=== PATIENT | male | born 1945 | race Caucasian/White ===

== ENCOUNTER 2016-11-26 10:21 | Emergency (ER) | payer MEDICARE, OTHER ==
[~2016-11-26] VITALS: Ht 175.3 cm; Wt 97.0 kg
[~2016-11-26 10:21] MED LIST: ATOR40TA21; CEPH-443 PO; CLIN-73 PO; GABA100C14; GABA300C16; GLIM2TAB; GLYB1TAB3; HC20CR25; LISI2.5T59; LORA-441; MELO-109; METF500T4; OMEP20CA16; PREG50CA; SITA100T8; TRAM50TA2; [UNRECOGNIZED DRUG - CODE]
[2016-11-26 10:23] VITALS: Ht 175.3 cm; Wt 97.0 kg
[2016-11-26] MEDS ORDERED: KETOROLAC 30 MG INJ IM STA (10:40)
--- NOTE | 2016-11-26 10:44 | ERD ---
ER Documentation Chief Complaint Date/Time DATE: 11/26/16 TIME: 10:41 Chief Complaint BACK PAIN X 2 DAYS, NO INJURY HPI This 70-year-old male who presents the emergency department today complaining of back pain for the past 2 days. States he has pain when he goes from sitting to standing and the pain improves. States he is taking gabapentin for pain. States he had back pain 10 years ago but went to massage for times and the pain improved. Denies any fevers or chills, trauma, dysuria, loss of bowel or bladder control. ROS All systems reviewed and are negative except as per history of present illness. Medications Home Meds Active Scripts Naproxen* (Naprosyn*) 500 Mg Tablet, 500 MG PO BID Y for PAIN AND/OR INFLAMMATION, #30 TAB Prov:DENYS GOULD PA-C 11/26/16 Tramadol HCl (Tramadol HCl) 50 Mg Tablet, 50 MG PO Q4 Y for PAIN, #20 TAB Prov:DENYS GOULD PA-C 11/26/16 Cephalexin* (Keflex*) 500 Mg Capsule, 500 MG PO QID for 5 Days, CAP Prov:NADEGE FELIPE NP 04/29/16 Clindamycin Hcl* (Clindamycin Hcl*) 300 Mg Capsule, 450 MG PO TID for 5 Days, CAP Prov:MARCOS MONTE PA-C 03/27/16 Reported Medications Gabapentin* (Gabapentin*) 100 Mg Capsule 10/18/12 Glimepiride* (Glimepiride*) 2 Mg Tablet 10/18/12 Lorazepam* (Ativan*) 0.5 Mg Tablet 10/18/12 Pregabalin* (Lyrica*) 50 Mg Capsule 10/18/12 Lisinopril* (Lisinopril*) 2.5 Mg Tablet 10/18/12 Metformin Hcl* (Metformin Hcl*) 500 Mg Tablet 10/18/12 Hydrocortisone* Topical (Hydrocortisone* Topical) 1 Applic Cr 10/18/12 Gabapentin* (Gabapentin*) 300 Mg Capsule 10/18/12 Fluocinolone Acetonide* (Synalar* Cream) 1 Applic Cr 10/18/12 Omeprazole* (Omeprazole*) 20 Mg Capsule. 10/18/12 Glyburide, Micro-Metformin Hcl (Glyburide-Metformin) 1 Tab Tablet 10/18/12 Atorvastatin (Lipitor) 40 Mg Tablet, DAILY 04/03/12 Tramadol HCl (Tramadol HCl) 50 Mg Tablet, DAILY 04/03/12 Meloxicam* (Meloxicam*) 7.5 Mg Tablet, DAILY 04/03/12 Sitagliptin* (Januvia*) 100 Mg Tablet, DAILY 04/03/12 Allergies Allergies: Coded Allergies: No Known Allergy (Unverified , 04/03/12) PMhx/Soc Hx Cardiac Disorders: Yes (HTN, HI CHOL) Hx Miscellaneous Medical Probl: Yes (dm) Hx Alcohol Use: No Hx Substance Use: No Hx Tobacco Use: No Physical Exam Vitals Vital Signs Date Time Temp Pulse Resp B/P Pulse Ox O2 Delivery O2 Flow Rate FiO2 11/26/16 10:23 98.3 105 18 117/74 95 Physical Exam Const: No acute distress Head: Atraumatic Eyes: Normal Conjunctiva ENT: Normal External Ears, Nose and Mouth. Neck: Full range of motion..~ No meningismus. Resp: Clear to auscultation bilaterally Cardio: Regular rate and rhythm, no murmurs Skin: No petechiae or rashes Back: Lumbar spine midline tenderness and bilateral paraspinal tenderness. Decreased range of motion secondary to pain. Pulses 2+. Distal neurovascularly intact Ext: No cyanosis, or edema Neur: Awake and alert Psych: Normal Mood and Affect Results 24 hrs Laboratory Tests Test 11/26/16 10:56 Bedside Urine pH (LAB) 5.5 Bedside Urine Protein (LAB) Negative Bedside Urine Glucose (UA) 0.50% Bedside Urine Ketones (LAB) Negative Bedside Urine Blood Trace-intact Bedside Urine Nitrite (LAB) Negative Bedside Urine Leukocyte Esterase (L Negative Current Medications Medications (Trade) Dose Ordered Sig/Tito Route PRN Reason Start Time Stop Time Status Last Admin Dose Admin Ketorolac Tromethamine (Toradol) 30 mg ONCE STAT IM 11/26/16 10:40 11/26/16 10:41 DC 11/26/16 10:51 DIAGNOSTIC IMAGING REPORT Patient: AMERICO PRO : 1945 Age: 70 Sex: M MR #: [id number] DOS: 11/26/16 0000 Ordering MD: DENYS GOULD PA-C Location: [facility] Room/Bed: PROCEDURE: XR lumbar spine CLINICAL INDICATION: Low back pain 2 days TECHNIQUE: 3 views of the lumbar spine were obtained COMPARISON: None available FINDINGS: No fracture is identified. Vertebral bodies are grossly maintained in height. There is preservation of the lordosis of the lumbar spine. Alignment appears intact. There are multilevel anterior osteophytes which are prominent suggesting diffuse idiopathic skeletal hyperostosis. There is disk space narrowing, moderate - severe at L2-3 through L5-S1 , and multilevel vacuum disk changes. Facet arthropathy is seen at L4-5 and L5-S1. IMPRESSION: Multilevel advanced lumbar spondylosis/degenerative enthesopathy, with findings suggesting diffuse idiopathic skeletal hyperostosis. RPTAT: VV .Murtaza Loja MD, MD Date Time Electronically viewed and signed by .Murtaza Loja MD, on 11/26/2016 11:38 .O/ CC: DENYS GOULD PA-C Procedures/MDM This is a 70-year-old male who presents to the emergency department today complaining of back pain for the past 2 days. Given patient's age and midline tenderness I did feel it was appropriate to obtain imaging as well as a UA UA is negative for infection. Patient has glucose in his urine. He is a diabetic. Negative ketones. Low suspicion for pyelonephritis, nephrolithiasis Per the radiology report images of the lumbar spine show multilevel advanced lumbar spondylosis and degenerative changes with findings suggestive of diffuse idiopathic skeletal hyperostosis. There is facet arthropathy at the seen at L4 and 5 and L5 and S1. There is disc space narrowing, moderate to severe at L2 and 3 and through L5 and S1 This is likely the source of the patient's pain. Likely acute on chronic pain. Low suspicion for acute fracture or dislocation. Patient is afebrile and otherwise well-appearing. They have no loss of bowel or bladder control. Low suspicion for cauda equina or abscess patient is here with his and did ask me to speak to the son on the phone who speaks Chinese. I have explained all results to the son. I explained that he would likely need follow- up with rheumatology specialist. Patient was given Toradol here in the emergency department and pain improved. Patient will be given a prescription for tramadol, Naprosyn for home. At this time the patient is stable for discharge and outpatient management. Patient should follow up with their PCP in the next 1-2 days for possible orthopedic referral. They may return to the emergency department sooner for any persistent or worsening of symptoms. Patient and son understood and agreed with the plan. Departure Diagnosis: Primary Impression: Back pain Back pain location: low back pain Chronicity: acute Back pain laterality: bilateral Sciatica presence: unspecified whether sciatica present Qualified Code: M54.5 - Acute bilateral low back pain, with sciatica presence unspecified Condition: DENYS Salazar PA-C Nov 26, 2016 10:44
[2016-11-26 10:50] LABS: URINE BLOOD (Dip) POC Trace-intact (NEGATIVE)
--- NOTE | 2016-11-26 11:39 | RADRPT ---
PROCEDURE: XR lumbar spine CLINICAL INDICATION: Low back pain 2 days TECHNIQUE: 3 views of the lumbar spine were obtained COMPARISON: None available FINDINGS: No fracture is identified. Vertebral bodies are grossly maintained in height. There is preservatio n of the lordosis of the lumbar spine. Alignment appears intact. There are multilevel anterior ost eophytes which are prominent suggesting diffuse idiopathic skeletal hyperostosis. There is disk spa ce narrowing, moderate - severe at L2-3 through L5-S1 , and multilevel vacuum disk changes. Facet a rthropathy is seen at L4-5 and L5-S1. IMPRESSION: Multilevel advanced lumbar spondylosis/degenerative enthesopathy, with findings suggesting diffuse i diopathic skeletal hyperostosis. RPTAT: VV .Murtaza Loja MD, Date Time Electronically viewed and signed by .Murtaza Loja MD, on 11/26/2016 11:38 .O/
[2016-11-26] MEDS ORDERED: NAPR-260 PO (11:51)
[2016-11-26] MEDS ORDERED: TRAM50TA2 PO (11:51)
[2016-12-01 16:12] LABS: URINE BLOOD (Dip) POC Trace-intact (NEGATIVE)
== END 2016-11-26 12:13 | disposition home or self-care (01) ==
LOC: FTE 10:21
DX: M54.5 Low back pain (principal); I10 Essential (primary) hypertension; E11.9 Type 2 diabetes mellitus without complications; Z79.84 Long term (current) use of oral hypoglycemic drugs
CPT/HCPCS: 72100; 81003; 96372; 99284; J1885

== ENCOUNTER 2017-01-15 10:42 | Observation (INO) | payer MEDICARE, OTHER ==
[~2017-01-15] VITALS: Ht 170.2 cm; Wt 91.7 kg
[~2017-01-15 10:42] MED LIST changes: +NAPR-260 PO; +TRAM50TA2 PO
[2017-01-15] MEDS ORDERED: NITROGLYCERIN 2% 1 GM OINT PKT TD STA (12:26)
[2017-01-15] MEDS ORDERED: ASPIRIN 81 MG TAB PO STA (12:26)
[2017-01-15] MEDS ORDERED: NITROGLYCERIN (SL) 0.4 MG TAB SL PRN (12:30)
[2017-01-15 12:47] LABS: BASOPHIL # 0.1 10^3/ul (0.0-0.1); BASOPHILS % 0.4 % (0.0-2.0); EOSINOPHILS # 0.2 10^3/ul (0.0-0.5); EOSINOPHILS % 1.5 % (0.0-7.0); HEMATOCRIT 45.8 % (42.0-52.0); HEMOGLOBIN 15.4 g/dl (14.0-18.0); LYMPHOCYTES # 2.6 10^3/ul (0.8-2.9); LYMPHOCYTES % 19.8 % (15.0-51.0); MEAN CORPUSCULAR HEMOGLOBIN 29.2 pg (29.0-33.0); MEAN CORPUSCULAR HGB CONC 33.6 g/dl (32.0-37.0); MEAN CORPUSCULAR VOLUME 86.7 fl (82.0-101.0); MEAN PLATELET VOLUME 10.4 fl (7.4-10.4); MONOCYTE # 1.2 10^3/ul (0.3-0.9); MONOCYTES % 9.2 % (0.0-11.0); NEUTROPHILS % 68.5 % (39.0-77.0); PLATELET COUNT 269 10^3/UL (140-415); RED BLOOD COUNT 5.28 10^6/ul (4.70-6.10); RED CELL DISTRIBUTION WIDTH 13.2 % (11.5-14.5); WHITE BLOOD COUNT 12.9 10^3/ul (4.8-10.8)
[2017-01-15 13:12] LABS: ANION GAP 15 (8-16); BLOOD UREA NITROGEN 12 mg/dl (7-20); CALCIUM 9.7 mg/dl (8.4-10.2); CARBON DIOXIDE 28 mmol/L (21-31); CHLORIDE 103 mmol/L (97-110); CREATININE 0.82 mg/dl (0.61-1.24); GLUCOSE 129 mg/dl (70-220); POTASSIUM 4.5 mmol/L (3.5-5.1); SODIUM 141 mmol/L (135-144)
--- NOTE | 2017-01-15 13:24 | ERA ---
ER Documentation Chief Complaint Date/Time DATE: 01/15/17 TIME: 13:19 Chief Complaint cp x 1 week; avery HPI Patient is a 71-year-old male with diabetes who presents with chest pain. He has had the chest pain for the past 1 week. The pain comes and goes. It is midsternal. It has been worsening over the past 2 days. The pain radiates to his right side. He does feel pain up his neck and into his head. He was also sweaty and had shortness of breath. Upon review of old medical records this is the patient's sixth visit to the ER since 2011. ROS All systems reviewed and are negative except as per history of present illness. Medications Home Meds Active Scripts Naproxen* (Naprosyn*) 500 Mg Tablet, 500 MG PO BID Y for PAIN AND/OR INFLAMMATION, #30 TAB Prov:DENYS GOULDC 11/26/16 Tramadol HCl (Tramadol HCl) 50 Mg Tablet, 50 MG PO Q4 Y for PAIN, #20 TAB Prov:DENYS GOULDC 11/26/16 Cephalexin* (Keflex*) 500 Mg Capsule, 500 MG PO QID for 5 Days, CAP Prov:NADEGE FELIPE NP 04/29/16 Clindamycin Hcl* (Clindamycin Hcl*) 300 Mg Capsule, 450 MG PO TID for 5 Days, CAP Prov:MARCOS MONTE PA-C 03/27/16 Reported Medications Gabapentin* (Gabapentin*) 100 Mg Capsule 10/18/12 Glimepiride* (Glimepiride*) 2 Mg Tablet 10/18/12 Lorazepam* (Ativan*) 0.5 Mg Tablet 10/18/12 Pregabalin* (Lyrica*) 50 Mg Capsule 10/18/12 Lisinopril* (Lisinopril*) 2.5 Mg Tablet 10/18/12 Metformin Hcl* (Metformin Hcl*) 500 Mg Tablet 10/18/12 Hydrocortisone* Topical (Hydrocortisone* Topical) 1 Applic Cr 10/18/12 Gabapentin* (Gabapentin*) 300 Mg Capsule 10/18/12 Fluocinolone Acetonide* (Synalar* Cream) 1 Applic Cr 10/18/12 Omeprazole* (Omeprazole*) 20 Mg Capsule. 10/18/12 Glyburide, Micro-Metformin Hcl (Glyburide-Metformin) 1 Tab Tablet 10/18/12 Atorvastatin (Lipitor) 40 Mg Tablet, DAILY 04/03/12 Tramadol HCl (Tramadol HCl) 50 Mg Tablet, DAILY 04/03/12 Meloxicam* (Meloxicam*) 7.5 Mg Tablet, DAILY 04/03/12 Sitagliptin* (Januvia*) 100 Mg Tablet, DAILY 04/03/12 Allergies Allergies: Coded Allergies: No Known Allergy (Unverified , 04/03/12) PMhx/Soc History of Surgery: No Anesthesia Reaction: No Hx Neurological Disorder: No Hx Respiratory Disorders: No Hx Cardiac Disorders: No (HYPERTeNSION; HYPERCHOLESTEROLEMIA) Hx Psychiatric Problems: No Hx Miscellaneous Medical Probl: Yes (DIABETES MELLITUS) Hx Alcohol Use: No Hx Substance Use: No Hx Tobacco Use: No Smoking Status: Never smoker FmHx Family History: No coronary disease Physical Exam Vitals Vital Signs Date Time Temp Pulse Resp B/P Pulse Ox O2 Delivery O2 Flow Rate FiO2 01/15/17 12:44 98.1 106 18 131/85 98 Room Air 01/15/17 12:42 Nasal Cannula 01/15/17 11:17 98.4 109 18 116/74 96 Physical Exam Const: No acute distress Head: Atraumatic Eyes: Normal Conjunctiva ENT: Normal External Ears, Nose and Mouth. Neck: Full range of motion..~ No meningismus. Resp: Clear to auscultation bilaterally Cardio: Regular rate and rhythm, no murmurs Abd: Soft, non tender, non distended. Normal bowel sounds Skin: No petechiae or rashes Back: No midline or flank tenderness Ext: No cyanosis, or edema Neur: Awake and alert Psych: Normal Mood and Affect Result Diagram: 01/15/17 1230 01/15/17 1230 Results 24 hrs Laboratory Tests Test 01/15/17 12:30 White Blood Count 12.910^3/ul Red Blood Count 5.2810^6/ul Hemoglobin 15.4g/dl Hematocrit 45.8% Mean Corpuscular Volume 86.7fl Mean Corpuscular Hemoglobin 29.2pg Mean Corpuscular Hemoglobin Concent 33.6g/dl Red Cell Distribution Width 13.2% Platelet Count 58081^3/UL Mean Platelet Volume 10.4fl Neutrophils % 68.5% Lymphocytes % 19.8% Monocytes % 9.2% Eosinophils % 1.5% Basophils % 0.4% Nucleated Red Blood Cells % 0.0/100WBC Neutrophils # (Manual) 8.910^3/ul Lymphocytes # 2.610^3/ul Monocytes # 1.210^3/ul Eosinophils # 0.210^3/ul Basophils # 0.110^3/ul Nucleated Red Blood Cells # 0.010^3/ul Sodium Level 141mmol/L Potassium Level 4.5mmol/L Chloride Level 103mmol/L Carbon Dioxide Level 28mmol/L Anion Gap 15 Blood Urea Nitrogen 12mg/dl Creatinine 0.82mg/dl Glucose Level 129mg/dl Calcium Level 9.7mg/dl Troponin I Pending Current Medications Medications (Trade) Dose Ordered Sig/Tito Route PRN Reason Start Time Stop Time Status Last Admin Dose Admin Aspirin (Aspirin) 162 mg ONCE STAT PO 01/15/17 12:26 01/15/17 12:27 DC 01/15/17 12:50 Nitroglycerin (Nitroglycerin 2% Oint) 1 inch ONCE STAT TD 01/15/17 12:26 01/15/17 12:27 DC 01/15/17 12:51 Nitroglycerin (Nitroglycerin (Sl Tab) 0.4 Mg) 1 tab Q5M UP TO 3 DOSES PRN SL CHEST PAIN 01/15/17 12:30 Ondansetron HCl (Zofran Inj) 4 mg ER BRIDGE PRN IV NAUSEA AND/OR VOMITING 01/15/17 13:30 01/16/17 13:29 Acetaminophen (Tylenol Tab) 650 mg ER BRIDGE PRN PO MILD PAIN/FEVER 01/15/17 13:30 01/16/17 13:29 Procedures/MDM EKG read by me: Rate/Rhythm: Sinus tachycardia rate of 109 Intervals: Normal Impression: Sinus tachycardia without ischemia EKG #2 is pending at this time. Chest x-ray shows no pneumonia or pneumothorax per radiology. Patient is a 71-year-old male presents with chest pain. The patient was given aspirin nitroglycerin empirically. Given his age and diabetes I am concerned about acute coronary syndrome. I doubt pneumonia, pneumothorax, pulmonary embolism, or aortic dissection. Troponin is pending at this time. I spoke with Dr. Hayes from the panel team for admission to a telemetry bed as the patient has Medicare insurance and his primary doctor does not have admitting privileges. Departure Diagnosis: Primary Impression: Chest pain Qualified Code: R07.9 - Chest pain, unspecified type Condition: JESSICA Mcdaniel MD Jan 15, 2017 13:24
[2017-01-15 13:25] LABS: TROPONIN-I < 0.012 ng/ml (0.00-0.12)
--- NOTE | 2017-01-15 13:28 | RADRPT ---
PROCEDURE: XR Chest. CLINICAL INDICATION: chest pain TECHNIQUE: Single frontal view of the chest was obtained COMPARISON: None FINDINGS: The heart and mediastinum are within normal limits. The lungs are clear. There is no pleural effusion or pneumothorax. RPTAT: AA IMPRESSION: No acute disease. .Everett Tran MD, Date Time Electronically viewed and signed by .Everett Tran MD, on 01/15/2017 13:28 .S/
[2017-01-15] MEDS ORDERED: ONDANSETRON 4 MG INJ IV PRN ×2 (13:30→16:00)
[2017-01-15] MEDS ORDERED: ACETAMINOPHEN 325 MG TAB PO PRN ×2 (13:30→16:00)
[2017-01-15] MEDS ORDERED: FLUO120C4 TOP (13:54)
[2017-01-15] MEDS ORDERED: GLIM2TAB PO ×2 (13:57→14:01)
[2017-01-15] MEDS ORDERED: ASPI-664 PO (13:58)
[2017-01-15] MEDS ORDERED: METO25TA7 PO (13:59)
[2017-01-15] MEDS ORDERED: GABA300C16 PO (14:00)
[2017-01-15] MEDS ORDERED: IBUP-1542 PO (14:00)
[2017-01-15] MEDS ORDERED: OMEP20CA16 PO (14:05)
[2017-01-15] MEDS ORDERED: MTF1000T PO (14:06)
[2017-01-15] MEDS ORDERED: SITA100T8 PO (14:07)
[2017-01-15] MEDS ORDERED: LISI2.5T59 PO (14:08)
[2017-01-15] MEDS ORDERED: HYPOGLYCEMIA PROTOCOL when Glucose is <70 mg/dL or symptomatic <90 mg/dL. XX ONE (16:00)
[2017-01-15] MEDS ORDERED: morphine 2 MG INJ IV PRN (16:00)
[2017-01-15] MEDS ORDERED: ACETAMINOPHEN 650 MG SUPP PR PRN (16:00)
[2017-01-15] MEDS ORDERED: DEXTROSE 50% 50 ML SYRINGE IV PRN ×2 (16:00)
[2017-01-15] MEDS ORDERED: HYDROCODONE/APAP (5/325) TAB PO PRN ×2 (16:00)
[2017-01-15] MEDS ORDERED: GLUCAGON 1 MG INJ IM PRN (16:00)
[2017-01-15] MEDS ORDERED: Discontinue current oral sulfonylureas (glyburide, glipizide, and/or glimepiride) prior to XX ONE (16:00)
[2017-01-15] MEDS ORDERED: MAGNESIUM HYDROXIDE 30ML CUP PO PRN (16:00)
[2017-01-15] MEDS ORDERED: IBUPROFEN 600 MG TAB PO PRN (16:00)
[2017-01-15] MEDS ORDERED: DOCUSATE SODIUM 100 MG CAP PO PRN (16:00)
[2017-01-15] MEDS ORDERED: GLUCOSE GEL 15 GRAM TUBE BUCCAL PRN (16:00)
[2017-01-15] MEDS ORDERED: BISACODYL 10 MG SUPP PR PRN (16:00)
[2017-01-15] MEDS ORDERED: NACL 0.9% 3 ML SYG IV SCH (16:00)
[2017-01-15] MEDS ORDERED: GLUCOSE GEL 15 GRAM TUBE PO PRN ×2 (16:00)
--- NOTE | 2017-01-15 17:26 | HP ---
Date/Time of Note Date/Time of Note DATE: 01/15/17 TIME: 17:24 Assessment/Plan VTE Prophylaxis VTE Prophylaxis Intervention: SCD's Lines/Catheters IV [facility] [place] Assessment/Plan Chief Complaint/Hosp Course Assessment and plan 1. Chest pain. Rule out ACS. Follow-up until troponins. News Correspondent to follow. Will also check up on echocardiogram. 2. Leukocytosis. Etiology unknown. Patient remains afebrile. No reports of fever at home as well. Chest x-ray was negative for any acute findings. Likely reactive. Will monitor for now. 3. Diabetes. A1c at 7.3. Will place on insulin regimen for now. Will adjust as needed. 4. Hypertension. Will continue antihypertensives and adjust needed Admission process time >40 minutes Discussed plan of care with Dr. Hayes Problems: HPI/ROS Admit Date/Time Admit Date/Time This is a 71-year-old male with history of diabetes and hypertension who came to [facility] due to reports of chest pain. Patient does report his chest pain roughly has been occurring intermittently for 1 week duration with pain starting on the right side and going on the left. He does report that pain happens randomly not associated with exertion and no reported shortness of breath. He is unable to descriptively describe his chest pain but only reports that it hurts. He reports pain is more on the right side now. He was brought to [facility] for further evaluation. Upon examination he did have a white count of 12.9 additionally initial troponin I was less than 0.012. A1c was seen at 7.3 and basic metabolic panel was otherwise unremarkable. He remained afebrile. Chest x-ray was also noted to be negative. He otherwise appears comfortable at this time. We will evaluate him for the aformentiond issues. ROS 12 point review of systems obtained and entirely negative except that mentioned in history of present illness PMH/Family/Social Past Medical History Medical/surgical history 1. Hypertension 2. Diabetes Social History Alcohol Use: none Smoking Status: Former smoker (Stop smoking 10 years ago) Drug Use: none Exam/Review of Systems Vital Signs Vitals Vital Signs Date Time Temp Pulse Resp B/P Pulse Ox O2 Delivery O2 Flow Rate FiO2 01/15/17 16:36 85 18 112/73 99 Room Air 01/15/17 12:44 98.1 Exam Constitutional: alert, oriented Psych: nl mood/affect Head: normocephalic Neck: supple, No jvd Respiratory: clear to auscultation, normal air movement Cardiovascular: regular rate and rhythm Gastrointestinal: non-tender, soft Musculoskeletal: nl extremities to inspection, nl gait and stance Extremities: normal pulses 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, nl mental status, nl speech Labs Result Diagram: 01/15/17 1230 01/15/17 1230 Medications Medications Current Medications Aspirin (Halfprin) 81 mg DAILY PO ; Start 01/16/17 at 09:00 Fluocinonide (Lidex 0.05% Cr) 1 applic BID TOP ; Start 01/15/17 at 21:00 Gabapentin (Neurontin) 300 mg QHS PO ; Start 01/15/17 at 21:00 Ibuprofen (Motrin) 600 mg Q12 PRN PO PAIN AND/OR INFLAMMATION; Start 01/15/17 at 16:00 Lisinopril (Zestril) 2.5 mg DAILY PO ; Start 01/16/17 at 09:00 Metoprolol Succinate (Toprol Xl) 25 mg DAILY PO ; Start 01/16/17 at 09:00 Pantoprazole (Protonix Tab) 40 mg DAILY@06 PO ; Start 01/16/17 at 06:00 Ondansetron HCl (Zofran Inj) 4 mg Q6H PRN IV NAUSEA AND/OR VOMITING; Start 04/21 at 16:00 Acetaminophen (Tylenol Tab) 650 mg Q6H PRN PO PAIN LEVEL 1-3 OR FEVER; Start at 16:00 Acetaminophen (Tylenol Supp) 650 mg Q6H PRN [place] PAIN LEVEL 1-3 OR FEVER; Start 01/15/17 at 16:00 Acetaminophen/ Hydrocodone Bitart ([place] (5/325)) 1 tab Q6H PRN PO MODERATE PAIN LEVEL 4-6; Start 01/15/17 at 16:00 Acetaminophen/ Hydrocodone Bitart ([place] (5/325)) 2 tab Q6H PRN PO SEVERE PAIN LEVEL 7-10; Start 01/15/17 at 16:00 Morphine Sulfate (morphine) 2 mg Q4H PRN IV SEVERE PAIN LEVEL 7-10; Start 01/15 at 16:00 Docusate Sodium (Colace) 100 mg Q12H PRN PO CONSTIPATION; Start 01/15/17 at 16: 00 Magnesium Hydroxide (Milk Of Mag) 30 ml DAILY PRN PO CONSTIPATION; Start at 16:00 Bisacodyl (Dulcolax Supp) 10 mg DAILY PRN [place] CONSTIPATION; Start 01/15/17 at 16 :00 Diagnostic Test (Pha) (Accu-Chek) 1 ea 02 XX ; Start 01/16/17 at 02:00 Insulin Glargine (Lantus) 14 unit DAILY@08 SC ; Start 01/16/17 at 08:00 Miscellaneous Information 1 ea NOTE XX ; Start 01/15/17 at 16:00 Glucose (Glutose) 15 gm Q15M PRN PO DECREASED GLUCOSE; Start 01/15/17 at 16:00 Glucose (Glutose) 22.5 gm Q15M PRN PO DECREASED GLUCOSE; Start 01/15/17 at 16: 00 Dextrose (D50w Syringe) 25 ml Q15M PRN IV DECREASED GLUCOSE; Start 01/15/17 at 16:00 Dextrose (D50w Syringe) 50 ml Q15M PRN IV DECREASED GLUCOSE; Start 01/15/17 at 16:00 Glucagon (Glucagen) 1 mg Q15M PRN IM DECREASED GLUCOSE; Start 01/15/17 at 16:00 Glucose (Glutose) 15 gm Q15M PRN [place]CC[place] DECREASED GLUCOSE; Start 01/15/17 at 16 :00 NICHELLE GRIFFIN Jan 15, 2017 17:26
[2017-01-15] MEDS: INSULIN ASPART [NOVOLOG] 3 ML PEN SC SCH ×3 (17:49→21:00)
[2017-01-15 18:36] LABS: TROPONIN-I < 0.012 ng/ml (0.00-0.12)
[2017-01-15 19:14] LABS: CREATINE KINASE 198 IU/L (23-200)
[2017-01-15 19:25] LABS: CK-MB 1.52 ng/ml (0.0-2.4)
[2017-01-15] MEDS ORDERED: GABAPENTIN 300 MG CAP PO SCH (21:00)
[2017-01-16] VITALS (10 sets, daily range): BP systolic 113–123; BP diastolic 58–75; PULSE 87–97; RESP 18–21; TEMP 98.1; Ht 170.2 cm; Wt 91.7 kg
[2017-01-16 01:20] LABS: CREATINE KINASE 166 IU/L (23-200)
[2017-01-16 01:32] LABS: CK-MB 1.11 ng/ml (0.0-2.4); TROPONIN-I < 0.012 ng/ml (0.00-0.12)
[2017-01-16] MEDS ORDERED: ACCU-CHEK XX SCH (02:00)
[2017-01-16] MEDS ORDERED: PANTOPRAZOLE 40 MG INJ IV SCH (06:00)
[2017-01-16] MEDS ORDERED: PANTOPRAZOLE (EC) 40 MG TAB PO SCH (06:00)
[2017-01-16 07:16] LABS: ALBUMIN 4.1 g/dl (3.3-4.9); ALBUMIN/GLOBULIN RATIO 1.36; BILIRUBIN,INDIRECT 0.7 mg/dl (0-1.1); BILIRUBIN,TOTAL 0.7 mg/dl (0.2-1.3); CALCIUM 9.4 mg/dl (8.4-10.2); CHOL/HDL RATIO 4.2 RATIO; CREATININE 0.88 mg/dl (0.61-1.24); MAGNESIUM 2.2 mg/dl (1.7-2.5); PHOSPHORUS 3.7 mg/dl (2.5-4.9); POTASSIUM 4.1 mmol/L (3.5-5.1); TOTAL PROTEIN 7.1 g/dl (6.1-8.1)
[2017-01-16 07:17] LABS: CREATINE KINASE 165 IU/L (23-200)
[2017-01-16 07:30] LABS: T3 UPTAKE 30.2 % (23.5-40.5)
[2017-01-16 07:44] LABS: THYROID STIMULATING HORMONE 2.83 MIU/L (0.465-4.680)
[2017-01-16 07:45] LABS: CK-MB 1.33 ng/ml (0.0-2.4); TROPONIN-I < 0.012 ng/ml (0.00-0.12)
[2017-01-16] MEDS ORDERED: INSULIN GLARGINE [LANtus] 3 ML PEN SC SCH (08:00)
[2017-01-16] MEDS: INSULIN ASPART [NOVOLOG] 3 ML PEN SC SCH ×4 (08:31→12:48)
[2017-01-16] MEDS: FLUOCINONIDE 0.05% CR 30GM TUBE TOP SCH (09:00)
[2017-01-16] MEDS ORDERED: LISINOPRIL 5 MG TAB PO SCH (09:00)
[2017-01-16] MEDS ORDERED: METOPROLOL (XL) 25 MG TAB PO SCH (09:00)
[2017-01-16] MEDS ORDERED: ASPIRIN (EC) 81 MG TAB PO SCH (09:00)
[2017-01-16] MEDS ORDERED: GABA300C16 PO (11:40)
[2017-01-16] MEDS ORDERED: LISI2.5T59 PO (11:40)
[2017-01-16] MEDS ORDERED: METO25TA7 PO (11:40)
[2017-01-16] MEDS ORDERED: GLIM2TAB PO (11:40)
[2017-01-16] MEDS ORDERED: MTF1000T PO (11:40)
[2017-01-16] MEDS ORDERED: SITA100T8 PO (11:40)
[2017-01-16 12:27] LABS: BASOPHIL # 0.1 10^3/ul (0.0-0.1); BASOPHILS % 0.4 % (0.0-2.0); EOSINOPHILS # 0.2 10^3/ul (0.0-0.5); EOSINOPHILS % 1.9 % (0.0-7.0); HEMATOCRIT 44.5 % (42.0-52.0); LYMPHOCYTES # 2.9 10^3/ul (0.8-2.9); LYMPHOCYTES % 25.9 % (15.0-51.0); MEAN CORPUSCULAR HEMOGLOBIN 29.6 pg (29.0-33.0); MEAN CORPUSCULAR HGB CONC 33.7 g/dl (32.0-37.0); MEAN CORPUSCULAR VOLUME 87.9 fl (82.0-101.0); MEAN PLATELET VOLUME 10.3 fl (7.4-10.4); MONOCYTE # 1.1 10^3/ul (0.3-0.9); MONOCYTES % 9.4 % (0.0-11.0); PLATELET COUNT 258 10^3/UL (140-415); RED BLOOD COUNT 5.06 10^6/ul (4.70-6.10); RED CELL DISTRIBUTION WIDTH 13.1 % (11.5-14.5); WHITE BLOOD COUNT 11.3 10^3/ul (4.8-10.8)
[2017-01-16 14:04] LABS: ADD UMIC NO; UR ASCORBIC ACID NEGATIVE (NEGATIVE); UR BILIRUBIN (Dip) NEGATIVE (NEGATIVE); UR BLOOD (Dip) NEGATIVE (NEGATIVE); UR CLARITY CLEAR (CLEAR); UR COLOR YELLOW (YELLOW); UR GLUCOSE (Dip) 1+ mg/dL (NEGATIVE); UR KETONES (Dip) TRACE mg/dL (NEGATIVE); UR LEUKOCYTE ESTERASE (Dip) NEGATIVE Leu/ul (NEGATIVE); UR NITRITE (Dip) NEGATIVE (NEGATIVE); UR SPECIFIC GRAVITY (Dip) 1.017 (1.003-1.030); UR TOTAL PROTEIN (Dip) NEGATIVE (NEGATIVE); UR UROBILINOGEN (Dip) 2+ mg/dL (NEGATIVE)
--- NOTE | 2017-01-16 15:37 | PDOCDIS ---
Discharge Instructions DIAGNOSIS Discharge Diagnosis 1. Chest pain. atypical, suspect costochondritis 2. Leukocytosis. Likely reactive. 3. Diabetes. A1c at 7.3. 4. Hypertension. CONDITION Patient Condition: Stable HOME CARE INSTRUCTIONS: Diet Instructions: Low Fat /CholesterolSpecial Diet: carbohydrate controlled FOLLOW UP/APPOINTMENTS Follow-up Plan 1. Follow up with Dr. Jesus Reece in one week NICHELLE GRIFFIN Jan 16, 2017 15:37
--- NOTE | 2017-01-24 10:54 | DS ---
Date/Time of Note Date/Time of Note DATE: 01/24/17 TIME: 10:53 Discharge Summary Admission/Discharge Info Admit Date/Time Jan 15, 2017 at 13:06 Discharge Date/Time Jan 16, 2017 at 17:17 Discharge Diagnosis 1. Chest pain. atypical, suspect costochondritis 2. Leukocytosis. Likely reactive. 3. Diabetes. A1c at 7.3. 4. Hypertension. Patient Condition: Stable Hospital Course This is a 71-year-old male with history of diabetes and hypertension came to [facility] due to reports of chest pain. Patient did report he had chest pain for roughly a week duration intermittently that one from the right side to the left side. Patient denies any association of exertional chest pain. He also stated he had no shortness of breath. Notably when he came to the hospital he was seen with a white count of 12.9 and initial troponin was negative. He was seen with a A1c of 7.3 as well. Patient did have some troponins drawn which were all essentially negative. 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 During his course of stay did improve. Patient's chest pain likely acid reflux. He did report resolution of his chest pain. He was instructed to take PPI medication as instructed. During his course is that he did improve. He is otherwise optimized medically with insulin for diabetes or antihypertensives for his hypertension. The plan of care was discussed with the patient and patient did verbalize understanding. On the day of discharge patient was in stable condition Discussed plan of care with Dr. Hayes [facility] Active Scripts Lisinopril* (Lisinopril*) 2.5 Mg Tablet, 2.5 MG PO DAILY, #30 TAB Prov:NICHELLE GRIFFIN 01/16/17 Sitagliptin* (Januvia*) 100 Mg Tablet, 100 MG PO DAILY, #30 TAB Prov:NICHELLE GRIFFIN 01/16/17 Metformin* (Glucophage*) 1,000 Mg Tablet, 1000 MG PO BID, #60 TAB Prov:NICHELLE GRIFFIN 01/16/17 Glimepiride* (Glimepiride*) 2 Mg Tablet, 2 MG PO WITH BREAKFAST LUNCH for 30 Days, TAB Prov:NICHELLE GRIFFIN 01/16/17 Gabapentin* (Gabapentin*) 300 Mg Capsule, 300 MG PO QHS, #60 CAP Prov:NICHELLE GRIFFIN 01/16/17 Metoprolol Succinate* (Toprol XL*) 25 Mg Tab.sr.24h, 25 MG PO DAILY, #30 TAB Prov:NICHELLE GRIFFIN 01/16/17 Reported Medications Omeprazole* (Omeprazole*) 20 Mg Capsule.dr, 20 MG PO DAILY, #30 CAP 01/15/17 Ibuprofen* (Ibuprofen*) 600 Mg Tablet, 600 MG PO Q12 Y for PAIN AND/OR INFLAMMATION, TAB 01/15/17 Aspirin* (Aspirin* EC) 81 Mg Tablet.dr, 81 MG PO DAILY, TAB 01/15/17 Fluocinonide* (Fluocinonide* Cream) 0.1% - 120 Gm Cream..g., 1 APPLIC TOP BID, TUB 01/15/17 Follow-up Plan 1. Follow up with Dr. Jesus Reece in one week Primary Care Provider Darwin Cooley Time spent on discharge: > 30 minutes NICHELLE GRIFFIN Jan 24, 2017 10:54
== END 2017-01-16 17:17 | disposition home or self-care (01) ==
LOC: E/R 10:42 → TEL 13:06
PROVIDERS: ADMIT Hospitalist; ATTEND Hospitalist
DX: R07.89 Other chest pain (principal); D72.829 Elevated white blood cell count, unspecified; I10 Essential (primary) hypertension; E11.9 Type 2 diabetes mellitus without complications; E78.00 Pure hypercholesterolemia, unspecified; Z79.84 Long term (current) use of oral hypoglycemic drugs
CPT/HCPCS: 36415; 71010; 80048; 80053; 80061; 81003; 82550; 82553; 82962; 83036; 83735; 84100; 84436; 84443; 84479; 84484; 85025; 93005; 96372; 99285; G0378; J1815

== ENCOUNTER 2017-12-18 13:58 | Emergency (ER) | END 2017-12-18 15:35 | disposition home or self-care (01) ==